=== PATIENT | female | born 1940 | race Caucasian/White ===

== ENCOUNTER 2016-08-30 12:13 | Inpatient (IN) | payer MEDICARE, BC, OTHER ==
[~2016-08-30] VITALS: Ht 167.6 cm; Wt 103.3 kg
--- NOTE | ~2016-08-30 | HP ---
ADMIT: 08/30/2016 RM/LOC: 411 [facility] MR#: [id number] [address] NEAL BUSTAM[address]TE [address] [place] [address] History and Physical SEX: F AGE: 76 : 1940 DATE OF SERVICE: REASON FOR HOSPITALIZATION: Pneumonia. HISTORY OF PRESENT ILLNESS: This 76-year-old, female patient, who has had one week of respiratory congestion, cough, and weakness. She came to the office and was found to have an O2 saturation of 89% with rhonchi. We opted to admit her for further management of bibasilar infiltrates on chest x-ray and pneumonia. PAST MEDICAL HISTORY: She does have a medical history of hypertension, edema, vitamin D deficiency, and hypothyroidism. SOCIAL HISTORY: She lives independently. She is . FAMILY HISTORY: Noncontributory. MEDICATIONS: At time of admission, included: 1. Augmentin. 2. Hydrochlorothiazide. 3. Potassium. 4. Dicyclomine. 5. Aspirin. 6. Vitamin D3. 7. Levothyroxine. 8. Bystolic. 9. Ocuvite. 10.Advair. For specifics of dosing, please refer to her admission orders. ADMIT: 08/30/2016 RM/LOC: 411 [facility] MR#: [id number] [address] NEAL BUSTAM[address]TE [address] [place] [id number] History and Physical SEX: F AGE: 76 : 1940 REVIEW OF SYSTEMS: Generalized weakness, malaise, fatigue, fever, cough, and congestion. No nausea, vomiting, diarrhea, or bleeding. PHYSICAL EXAMINATION: LUNGS: On exam, she had rhonchi throughout both lung mckay. HEART: Regular. EXTREMITIES: No edema. IMPRESSION: Pneumonia. PLAN: Admit, IV antibiotic therapy, nebulized treatments, and viral evaluation for possible influenza. Juancarlos Case DO/ tisha JOB #: [id number] CC: Juancarlos Case DO, Attending Physician Juancarlos Case DO, Family Physician
[2016-09-03] MEDS ORDERED: ASA CHILDREN'S81 MG PO (19:46)
[2016-09-03] MEDS ORDERED: MICRO-K DPS10 MEQ PO (19:46)
[2016-09-03] MEDS ORDERED: HYDROCHLOROTH12.5 MG PO (19:46)
[2016-09-03] MEDS ORDERED: BENTYL-DPS10 MG PO (19:46)
[2016-09-03] MEDS ORDERED: VITAMIN D-32000 UNI1 PO (19:47)
[2016-09-03] MEDS ORDERED: SYNTHROID100 MCG PO (19:47)
[2016-09-03] MEDS ORDERED: BYSTOLIC2.5 MG PO (19:47)
[2016-09-03] MEDS ORDERED: ADVAIR DIS1 PUFF/DOS IH (19:48)
[2016-09-03] MEDS ORDERED: OCUVITE SOFTGE1 EACH PO (19:48)
[2016-09-03] MEDS ORDERED: PROVENTIL2.5 MG/3 M IH (19:48)
--- NOTE | 2016-10-08 08:28 | DS ---
ADMIT: 08/30/2016 RM/LOC: 411 [facility] MR#: [id number] [address] NEAL BUSTAM[address] [place] [address] General Discharge Summary SEX: F AGE: 76 : 1940 ADMISSION DATE: 08/30/2016 DISCHARGE DATE: 09/02/2016 REASON FOR HOSPITALIZATION: Pneumonia. HISTORY OF PRESENT ILLNESS: This 76-year-old, female patient, presented with respiratory congestion, cough, weakness, fever, and an O2 saturation of 89% with bibasilar infiltrates on chest x-ray. She was admitted to the hospital, started on IV Zosyn, IV fluids, underwent blood sputum and viral evaluation. The viral evaluation did show influenza. She was then started on Tamiflu and monitored. She was stable, and on 09/02/2016, she was considered appropriate for dismissal home. She was dismissed on Tamiflu to complete a 5-day course. She was to continue albuterol nebulized treatments, and follow up in my office within one week. Juancarlos Case DO/ tisha JOB #: [id number] CC: Juancarlos Case DO, Attending Physician Juancarlos Case DO, Family Physician
== END 2016-09-02 13:21 | disposition home or self-care (01) | DRG 195 ==
LOC: 4PCU 12:13
PROVIDERS: ADMIT Internal Medicine
DX: J10.00 Influenza due to other identified influenza virus with unspecified type of pneumonia (principal); I10 Essential (primary) hypertension; E03.9 Hypothyroidism, unspecified; E55.9 Vitamin D deficiency, unspecified

== ENCOUNTER 2016-09-23 16:55 | Emergency (ER) | payer MEDICARE, BC, OTHER ==
[~2016-09-23 16:55] MED LIST: ADVAIR DIS1 PUFF/DOS IH; ASA CHILDREN'S81 MG PO; BENTYL-DPS10 MG PO; BYSTOLIC2.5 MG PO; HYDROCHLOROTH12.5 MG PO; MICRO-K DPS10 MEQ PO; OCUVITE SOFTGE1 EACH PO; PROVENTIL2.5 MG/3 M IH; SYNTHROID100 MCG PO; VITAMIN D-32000 UNI1 PO
--- NOTE | 2016-09-25 09:10 | ER ---
ADMIT: 09/23/2016 RM/LOC: ER [facility] MR#: [id number] [address] NEAL BUSTAM[address] [place] [address] Emergency Room Report SEX: F AGE: 76 : 1940 DATE: 09/23/2016 TIME: 1655 Please refer to my T-sheet for complete H and P. HISTORY OF PRESENT ILLNESS: Briefly, the patient is a 76-year-old, who comes in with general weakness, just not feeling well. No energy. She said her appetite has been a little bit decreased. She also does mention she has had some problems with urinating for the last couple of days, having to get up a lot. No fevers, but felt chilled. PHYSICAL EXAMINATION: VITAL SIGNS: Blood pressure 105/58, pulse 70, respirations 20, temp 99.6, saturating 94%. GENERAL: No acute distress. HEENT: Grossly normal. LUNGS: Clear. HEART: Regular. ABDOMEN: Soft. SKIN: No rash. NEUROLOGIC: Alert and oriented. No focal findings. EMERGENCY DEPARTMENT COURSE: Chest x-ray revealed no acute changes. CBC was normal except hemoglobin 11.9. Chemistries normal. Troponin was negative. EKG sinus rhythm, rate 65, no changes. UA showed 6884 white cells, 18 red cells that was sent for culture. We gave her 500 mL normal saline bolus, Rocephin 1 g IV, she was better. She walked up and down the vu. I had a long discussion with the family, she was ready for discharge. ASSESSMENT: 1. General weakness. 2. Acute cystitis. PLAN: Fluids, return if worse. Fall precautions. See Dr. Case this week. Cipro 500 b.i.d. for 7 days. Tristen Guthrie MD/ tisha JOB #: [id number] CC: Michael Monterroso MD, Attending Physician Juancarlos Case DO, Family Physician
== END 2016-09-23 19:35 | disposition home or self-care (01) ==
LOC: ER 16:55
DX: N30.00 Acute cystitis without hematuria (principal); R53.1 Weakness; E11.9 Type 2 diabetes mellitus without complications; Z88.2 Allergy status to sulfonamides